=== PATIENT | female | born 1950 | race Caucasian/White ===

== ENCOUNTER → 2016-09-18 | Outpatient (CLI) | payer MEDICARE, MEDICAID ==
[~2016-09-18] MED LIST: /DULO30CA; ASPI81TA3; CARV12.5; CYMBALTA; INSULIN NPH; KLON0.5T; LASI80TA; SIMV40TA2
--- NOTE | 2016-09-18 10:35 | REP ---
Clinical: Iron-deficiency anemia. Technique: PA and lateral. Comparison: None. Findings: Cardiomegaly with evidence for prior sternotomy, CABG, pacemaker, and valve replacement. Lung troy demonstrate mild chronic changes without acute consolidation, effusion, or pneumothorax. Skeletal structures demonstrate age-related degenerative changes. Impression: Cardiomegaly and chronic changes. No acute cardiopulmonary process. Signed by Wilfrido Bell MD 09/18/2016 10:26 A
== END ==
LOC: M RAD 09:53
PROVIDERS: ATTEND Internal Medicine Cardiovascular Disease
DX: T82.190A Other mechanical complication of cardiac electrode, initial encounter (principal); Z98.61 Coronary angioplasty status

== ENCOUNTER → 2016-10-02 | Outpatient (CLI) | payer MEDICAID, MEDICARE | LOC: M LAB 11:39 | PROVIDERS: ATTEND Internal Medicine Cardiovascular Disease | DX: Z01.818 Encounter for other preprocedural examination (principal); T82.11 Breakdown (mechanical) of cardiac electronic device ==

== ENCOUNTER → 2016-10-04 | Outpatient (CLI) | payer MEDICARE, MEDICAID | LOC: M LAB 17:29 | PROVIDERS: ATTEND Internal Medicine Infectious Disease | DX: T82.11 Breakdown (mechanical) of cardiac electronic device (principal); I33.0 Acute and subacute infective endocarditis ==

== ENCOUNTER → 2016-10-04 | Outpatient (CLI) | payer MEDICARE, MEDICAID | LOC: M LAB 17:33 | PROVIDERS: ATTEND Internal Medicine Cardiovascular Disease | DX: I33.0 Acute and subacute infective endocarditis (principal) ==

== ENCOUNTER → 2016-10-06 | Outpatient (CLI) | payer MEDICARE, MEDICAID ==
[2016-10-10 14:20] LABS: B. HENSELAE IgG (CAT SCRATCH) Negative titer (Neg:<1:320); B. HENSELAE IgM (CAT SCRATCH) Negative titer (Neg:<1:100); B. QUINTANA IgG (CAT SCRATCH) Negative titer (Neg:<1:320); B. QUINTANA IgM (CAT SCRATCH) Negative titer (Neg:<1:100)
== END ==
LOC: M LAB 15:09
PROVIDERS: ATTEND Internal Medicine Cardiovascular Disease
DX: I33.0 Acute and subacute infective endocarditis (principal)

== ENCOUNTER → 2016-10-12 | Outpatient (CLI) | payer MEDICARE, MEDICAID ==
[2016-10-12 17:53] LABS: CALCIUM LEVEL 8.8 MG/DL (8.8-10.2); CREATININE FOR GFR 1.6 MG/DL (0.55-1.02); GLOMERULAR FILTRATION RATE 34.4 (>45); POTASSIUM SERUM 4.5 MEQ/L (3.5-5.1)
== END ==
LOC: M LAB 15:43
PROVIDERS: ATTEND Internal Medicine Infectious Disease
DX: I38 Endocarditis, valve unspecified (principal)
CPT/HCPCS: 36415; 80048; 85652; 86140; 87040; G0463

== ENCOUNTER → 2016-10-24 | Outpatient (CLI) | payer MEDICARE, MEDICAID ==
[~2016-10-24] MED LIST changes: +GASTROGRAFIN SOLUTION 30ML (Q9963) As Ordered ONE
--- NOTE | 2016-10-24 17:11 | REP ---
CT HEAD WITHOUT CONTRAST: HISTORY: Endocarditis. COMPARISON: 08/13/2014. A small area of decreased attenuation is present in the posterior left temporal and parietal lobes. There is dilatation of the overlying cortical sulci. This represents an old infarction. Areas of decreased attentuation are present in the periventricular white matter. This represents small vessel ischemic disease. There is no intraparenchymal hemorrhage, mass or midline shift. The ventricular system and cortical sulci are dilated consistent with minimal volume loss. IMPRESSION: 1. 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 2. Small vessel ischemic disease. 3. Minimal volume loss. Signed by Joshua Mathias MD 10/24/2016 05:19 P
--- NOTE | 2016-10-24 18:17 | REP ---
Clinical: Chronic cough. Findings: The bilateral lung troy are well-aerated and clear. No acute consolidation, nodule or mass lesion. No significant chronic interstitial changes are appreciated. No pleural effusion/reaction. No pneumothorax. Tracheobronchial tree is patent. Mediastinum demonstrates cardiomegaly along with atherosclerotic changes to the thoracic aorta and coronary arteries. Evidence of prior sternotomy and pacemaker. Epicardial calcifications suggest prior cardiac infarction. No significant adenopathy. Surrounding musculoskeletal structures without focal osseous abnormality. Impression: Cardiomegaly. No acute mediastinal or pleuroparenchymal process. Signed by Wilfrido Bell MD 10/24/2016 06:09 P
--- NOTE | 2016-10-24 18:22 | REP ---
Clinical: Endocarditis. Chronic abdominal pain and cough. Findings: Lung bases are clear. Cardiomegaly is appreciated with evidence for prior cardiac infarction. Liver, spleen, pancreas, gallbladder, bilateral adrenal glands and kidneys are normal for noncontrast evaluation. The enteric system is without obstruction or acute inflammatory process. Sigmoid diverticula noted without acute diverticulitis. Pelvis demonstrates normal bladder and the age-appropriate uterus/adnexa. Small fat containing inguinal hernias. No pelvic fluid or ascites. No adenopathy. No free air. Moderate atherosclerotic changes to the aorta and branch vessels without aneurysm. Musculoskeletal structures demonstrate degenerative changes without focal osseous abnormality. Impression: Scattered sigmoid diverticula without acute diverticulitis. Degenerative changes to the visualized thoracolumbar spine. Atherosclerotic changes to the vasculature. No ascites. No acute intra-abdominal or pelvic pathology appreciated. Signed by Wilfrido Bell MD 10/24/2016 06:13 P
[2016-10-27 15:40] LABS: Q FEVER PCR NEGATIVE
== END ==
LOC: M RAD 14:19
PROVIDERS: ATTEND Internal Medicine Infectious Disease
DX: R05 Cough (principal); I38 Endocarditis, valve unspecified; K57.30 Diverticulosis of large intestine without perforation or abscess without bleeding; M51.35 Other intervertebral disc degeneration, thoracolumbar region; I51.7 Cardiomegaly; I73.9 Peripheral vascular disease, unspecified; G31.9 Degenerative disease of nervous system, unspecified
CPT/HCPCS: 36415; 70450; 71250; 74176; 86638; Q9963

== ENCOUNTER 2017-04-03 10:49 | Inpatient (IN) | payer MEDICARE, MEDICAID ==
[~2017-04-03] VITALS: Ht 147.3 cm; Wt 54.8 kg
[~2017-04-03 10:49] MED LIST changes: -GASTROGRAFIN SOLUTION 30ML (Q9963) As Ordered ONE
[2017-04-03] MEDS ORDERED: PANTOPRAZOLE 40MG INJ (PROTONIX) (C9113) IV ONE (11:00)
[2017-04-03] MEDS ORDERED: TOPR25TA PO (11:13)
[2017-04-03] MEDS ORDERED: BUME2TAB PO (11:13)
[2017-04-03] MEDS ORDERED: POTA10CA PO (11:13)
[2017-04-03] MEDS ORDERED: PRAD150C PO (11:13)
[2017-04-03] MEDS ORDERED: SPIR50TA2 PO (11:13)
[2017-04-03] MEDS ORDERED: INSUH10VL SC (11:13)
[2017-04-03] MEDS ORDERED: INSULADS SC (11:13)
[2017-04-03] MEDS ORDERED: OMEP20CA3 PO (11:13)
[2017-04-03] MEDS ORDERED: FERR325T3 PO (11:13)
[2017-04-03] MEDS ORDERED: OMEP40CA2 PO (11:13)
[2017-04-03] MEDS ORDERED: JANU100T PO (11:13)
[2017-04-03] MEDS ORDERED: DULO30CA PO (11:13)
[2017-04-03] MEDS ORDERED: LISI2.5T3 PO (11:13)
[2017-04-03] MEDS: PANTOPRAZOLE SODIUM 40 MG in D5W MINI-BAG PLUS 50 ML IV SCH ×3 (11:35→20:36)
[2017-04-03 12:04] LABS: INR 1.44
[2017-04-03 12:10] LABS: MEAN CORPUSCULAR HEMOGLOBIN 30.4 pg (27.0-33.0); MEAN CORPUSCULAR HGB CONC 32.6 g/dl (32.0-36.5); MEAN CORPUSCULAR VOLUME 93.4 fl (80.0-96.0); PLATELET COUNT, AUTOMATED 239 k/mm3 (150-450); RED CELL DISTRIBUTION WIDTH 14.1 % (11.5-14.5); WHITE BLOOD COUNT 15.1 K/mm3 (4.0-10.0)
[2017-04-03 12:11] LABS: ADD MANUAL DIFFER YES; DIFF SLIDE NUMBER 254
[2017-04-03 12:37] LABS: BASOPHILS 1 % (0-4)
[2017-04-03 12:38] LABS: ANISOCYTOSIS 2+; HYPOCHROMASIA 1+; MICROCYTOSIS 1+
[2017-04-03 12:41] LABS: ALBUMIN 3.2 GM/DL (3.2-5.2); ALBUMIN/GLOBULIN RATIO 1.28 (1.00-1.93); BILIRUBIN,DIRECT 0.1 MG/DL (0.0-0.2); BILIRUBIN,TOTAL 0.4 MG/DL (0.2-1.0); CALCIUM LEVEL 8.3 MG/DL (8.8-10.2); CREATININE FOR GFR 1.17 MG/DL (0.55-1.02); GLOMERULAR FILTRATION RATE 49.3 (>45); TOTAL PROTEIN 5.7 GM/DL (6.4-8.2)
[2017-04-03] MEDS ORDERED: GLUC1KIT INJ (12:42)
[2017-04-03] MEDS ORDERED: CALC600T3 PO (12:42)
[2017-04-03] MEDS ORDERED: ATOR40TA75 PO (12:42)
[2017-04-03] MEDS ORDERED: SENN1TAB10 PO (12:42)
[2017-04-03 12:46] LABS: POTASSIUM SERUM 5.6 MEQ/L (3.5-5.1)
[2017-04-03] MEDS ORDERED: NS 500 ML IV SCH (15:00)
[2017-04-03] MEDS ORDERED: ONDANSETRON 4MG/2ML VIAL (J2405) IV PRN (15:00)
[2017-04-03] MEDS ORDERED: GLUCOSE 4 GM CHEW TABLET PO PRN (15:15)
[2017-04-03] MEDS ORDERED: DEXTROSE 50% 50 ML SYRINGE IV PRN (15:15)
[2017-04-03] MEDS ORDERED: GLUCAGON FOR INJ 1 MG VIAL (J1610) SC PRN (15:15)
--- NOTE | 2017-04-03 15:32 | HPEPDOC ---
General Date of Admission 04/03/17 Chief Complaint The patient is a 66-year-old female admitted with a reason for visit of Rectal Bleeding. History of Present Illness 66-year-old female with past medical history of dyslipidemia, congestive heart failure with EF of 35-40% s/p PPM, insulin dependent diabetes mellitus, iron deficiency anemia, atrial fibrillation on Pradaxa, GI bleeding, CKD, and ? Endocarditis presents to the ER with a chief complaint of 2 episodes of maroon color stools over the last 24 hours. The patient states that her first episode was last night, at which time, the patient states that she had a profuse amount of maroon-colored stool. In addition, the patient states she had additional episode this morning in the ER. She does note that she has had a similar occurrence in the past, most notably in January 2016 at which time she required an EGD and colonoscopy which revealed duodenal ulcers at [facility]. She reports that her anticoagulation was temporarily discontinued and then restarted about 2 weeks later. Since then, the patient states that she has had intermittent spotting of blood in her bowel movements but not anything significant like she had yesterday evening and this morning. She denies any fevers, chills, chest pain, shortness of breath, palpitations, significant abdominal pain, or any nausea/vomiting/diarrhea. In the ER, the patient was noted to have a hemoglobin of 6.8 and she was also notably orthostatic. Her blood pressure in the supine position is stable. The patient will be transfused 2 units of packed red blood cells. In addition, a GI consult has been obtained for possible EGD/colonoscopy. Home Medications Scheduled Atorvastatin Calcium (Atorvastatin Calcium) 40 Mg Tab, 40 MG PO QPM, (Reported) Bumetanide (Bumetanide) 2 Mg Tab, 1 MG PO DAILY, (Reported) Calcium Carbonate (Calcium Carbonate) 600 Mg Tab, 600 MG PO BIDWM, (Reported) Dabigatran Etexilate (Pradaxa) 150 Mg Cap, 150 MG PO BID, (Reported) Duloxetine Hcl (Cymbalta) 30 Mg Cap, 60 MG PO DAILY, (Reported) Ferrous Sulfate (Ferrous Sulfate) 325 Mg Tab, 325 MG PO DAILY, (Reported) Insulin Aspart (Novolog) 100 U/Ml Inj, 1 DOSE SC AC, (Reported) PER SLIDING SCALE Insulin Glargine (Lantus) 100 Unit/Ml Inj, 30 UNIT SC QHS, (Reported) Lisinopril (Lisinopril) 2.5 Mg Tab, 2.5 MG PO DAILY, (Reported) Metoprolol Succinate (Toprol Xl) 25 Mg Tab, 25 MG PO DAILY, (Reported) Omeprazole (Omeprazole) 20 Mg Cap, 20 MG PO BID, (Reported) Potassium Chloride (Klor-Con M10) 10 Meq Tabcr, 10 MEQ PO DAILY, (Reported) Senna (Senna Lax) 8.6 Mg Tab, 2 TAB PO QHS, (Reported) Sitagliptin Phosphate (Januvia) 100 Mg Tab, 100 MG PO DAILY, (Reported) Spironolactone (Spironolactone) 50 Mg Tab, 50 MG PO DAILY, (Reported) Scheduled PRN Glucagon Rdna (Glucagon Emergency Kit) 1 Mg Kit, 1 MG INJ for LOW BLOOD SUGAR, ( Reported) Allergies Coded Allergies: Prochlorperazine (Verified Allergy, Unknown, 04/03/17) Warfarin (Verified Allergy, Unknown, 04/03/17) Past Medical History Medical History as noted above Surgical History TUBAL LIGATION OOPHERECTOMY CARDIAC SURGERY/BYPASS/ HEART ABLATION 1996 CAROTID ENDARTERECTOMY BILATERAL DEFIBRILLATOR Family History Significant Family History: No pertinent family hx Social History * Smoker: Denies Alcohol: Denies Drugs: denies Lives with her daughter, is functionally independent, and does not use any assistance devices for ambulation. Review of Symptoms Other systems 10 point review of systems negative unless otherwise specified in HPI. Physical Examination General Exam: Positive: Alert, Cooperative, No Acute Distress, Other (does appear pale from anemia) ENT Exam: Positive: Atraumatic, Mucous membr. moist/pink Neck Exam: Negative: JVD Chest Exam: Positive: Clear to auscultation, Normal air movement Heart Exam: Positive: Rate Normal, Normal S1, Normal S2 Abdomen Exam: Positive: Soft, Negative: Tenderness Extremity Exam: Negative: Tenderness, Swelling Psych Exam: Positive: Oriented x 3 Vital Signs Vital Signs Date Time Temp Pulse Resp B/P (MAP) Pulse Ox O2 Delivery O2 Flow Rate FiO2 04/03/17 13:34 69 100 04/03/17 13:31 117/51 (73) 04/03/17 11:17 97.4 16 Nasal Cannula 2.0 Laboratory Data Labs 24H Laboratory Tests 2 04/03/17 11:43: Neutrophils 92H, Lymphocytes (Manual) 5L, Monocytes (Manual) 1, Basophils ( Manual) 1, Atypical Lymphocytes 1, Platelet Estimate NORMAL, Hypochromasia 1+, Anisocytosis 2+, Microcytosis 1+, Prothrombin Time 17.9H, Prothromb Time International Ratio 1.44, Anion Gap 9, Glomerular Filtration Rate 49.3, Lactic Acid Level 1.4, Calcium Level 8.3L, Aspartate Amino Transf (AST/SGOT) 16, Alanine Aminotransferase (ALT/SGPT) 20, Alkaline Phosphatase 102, Total Bilirubin 0.4, Direct Bilirubin 0.1, Total Creatine Kinase 49, Creatine Kinase MB 1.8, Creatine Kinase MB Relative Index 3.67, Troponin I 0.02, Total Protein 5.7L, Albumin 3.2, Albumin/Globulin Ratio 1.28, Lipase 85 CBC/BMP Laboratory Tests 04/03/17 11:43 Red Blood Count 2.24 L, Mean Corpuscular Volume 93.4, Mean Corpuscular Hemoglobin 30.4, Mean Corpuscular Hemoglobin Concent 32.6, Red Cell Distribution Width 14.1 Plan / VTE VTE Prophylaxis Ordered?: Yes Plan Plan Acute GI Bleed Hgb noted to be 6.8 in the ER-->We will transfuse 2 Units of PRBC's Protonix gtt and Carafate ordered Will hold Pradaxa for now Patient with most recent EGD and Colonoscopy @ [facility] in January 2016, at which time the patient was found to have duodenal ulcers according to the patient-- we will place an order to obtain records We will serially monitor H&H's q6h Discussed the case with GI--we will keep the patient on a clear liquid diet for now, nothing by mouth after midnight, and anticipate possible EGD/Colonoscopy in the AM Leukocytosis Likely 2/2 Above No overt signs of infection noted We will cont to monitor CBC Hx of CAD s/p CABG, Ablation, Carotid Endartectomy, CHF with an EF of 35-40% s/ p AICD Initial troponin negative EKG noted Patient with no acute c/o chest pain, palpitations, shortness of breath AC on hold 2/2 Above Cont Statin Patient does not appear to be fluid overloaded, we will hold diuretics and anti- hypertensives for now in view of the patient's GI bleed, and soft blood pressure Atrial fibrillation on Pradaxa, rate controlled We will hold the patient's anticoagulation given GI bleed I have extensively discussed the increased risk of stroke, PE/DVT with the patient and her daughter at the bedside. They have verbalized understanding of this. Insulin-dependent diabetes mellitus We will have the patient on a insulin sliding scale every 6 hours for now Dyslipidemia Continue statin Chronic kidney disease Serum creatinine appears to be at baseline Hx of ?Endocarditis The patient has been seen by Dr. Adrian of infectious diseases as an outpatient, and states that she has completed antibiotics, and that there is no longer any evidence of active infection DVT Prophylaxis SCDs/TEDs The patient will be admitted under the service of Dr. Mcadams, who will begin to follow the patient on 04/04/17 at 7 AM. JEAN PIERRE SERRANO MD Apr 03, 2017 15:32
[2017-04-03] MEDS ORDERED: SOD POLYSTYRENE SULFONATE SUSP 15 GM/60 ML UD PO ONE (15:45)
[2017-04-03 16:30] VITALS: BP 159/70
[2017-04-03] MEDS: SUCRALFATE 1 GM TAB PO SCH ×2 (17:04→20:36)
[2017-04-03] MEDS: DULoxetine 30 MG CAP (CYMBALTA) PO SCH (17:06)
[2017-04-03] MEDS: HumaLOG INSULIN (NovoLOG) PER UNIT SC SCH (17:06)
[2017-04-03 17:28] VITALS: BP 148/62
[2017-04-03 18:00] VITALS: BP 155/61
[2017-04-03 19:00] VITALS: BP 176/69
[2017-04-03] MEDS ORDERED: INFLUENZA VIRUS VACCINE HIGH DOSE 0.5 ML SYRINGE (90662) IM SCH (19:15)
[2017-04-03 20:00] VITALS: BP 167/71
[2017-04-03] MEDS: ATORVASTATIN 20 MG TAB PO SCH (20:36)
--- NOTE | 2017-04-03 21:20 | ECGEPIP ---
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
[2017-04-03 23:01] VITALS: BP 149/67
--- NOTE | 2017-04-03 23:35 | CR.PDOC ---
[facility] Consultation Consultation DATE OF CONSULTATION: Apr 03, 2017 at 17:49 REFERRING PROVIDER: Dr. Collins ATTENDING PHYSICIAN: Dr. Mcadams REASON FOR CONSULTATION/CHIEF COMPLAINT: rectal bleeding. HISTORY OF PRESENT ILLNESS: 66-year-old female patient with DLD, CHF 9 EF 40%, On PPM), DM type 2, Atrial fibrillation on pradaxa, CKD presented to ER for complaints of rectal bleeding and noted drop in Hb.HCT -- and GI consulted for the same. Patient reports having atleast 5- 6 episodes of bloody bowel movements , without any associated abdominal pain, nausea or vomiting. Patient also denies having any recent weight loss, loss of appetite, hematemesis. OFF note: patient had h/o similar rectal bleeding in January 2016 at which time she required an EGD and colonoscopy which revealed duodenal ulcers at [facility]. She reports that her anticoagulation was temporarily discontinued and then restarted about 2 weeks later Review of Systems: GI: as stated above CVS: No chest pain, No palpitations, No leg swelling RS: No Shortness of breath, No Wheezing HEART SPECIALIST: No dizziness, No motor weakness, No sensory problem Psych: No sleep alteration, No depression, Hematology: No bruising, No gum bleeding, Musculoskeletal: No joint pain, ambulating well. Skin: No rash ENT: No ear discharge/ pain, No dysphagia. Eyes: No photophobia. Home medications: reviewed. On anticoagulants -- pradaxa. Medical h/o: As above. Surgical h/o: Tubal ligation. and PPM placement. Carotid endarterrectomy. Social H/o: Denies smoking, alcohol or drugs use. Family h/o of GI cancers - None Prior Endoscopies: --- EGD and Colonoscopy -- in 2016 -- noted duodenal ulcers as per patient. Exam: Vitals: reviewed General: Alert and oriented x 3, not in distress HEENT: NO pallor, no icterus. Normal oropharynx, NO cervical lymph nodes. Chest: symmetric with bilateral clear air entry, CVS: S1, S2 heard, normal, no murmurs . Abdomen: non-distended, no surgical scars, soft, tenderness in epigastric area with no palpable masses, normal bowel sounds heard. negative tucker sign. gravid uterus palpable. Rectal exam: Deferred at this time Extremities: no pedal edema, pulses palpable. HEART SPECIALIST: no focal motor or sensory deficits. Moves all extremities Skin: no rash. Labs: reviewed. Imaging of abdomen: none. IMPRESSION: -- Rectal bleeding with drop in HCT and h/o duodenal ulcer in past. DDx - likely diverticular bleeding vs GI malignancy vs r/o PUD -- CKD with Cr- 1.2. Recommendations: -- Patient is educated about the test results and need for further work up including EGD and colonoscopy for further Evaluation. The procedures, risks, benefits and all alternatives were explained to patient and she verbalized undertstanding and agreed for the procedures. -- Clear liquid diet. -- monitor Hb.HCT every 6 hours and transfuse if needed to keep hb around 9 -- Cardiology evaluation of the Pacemaker/ AICD. -- Hold anticoagulation for now and risks and benefits discussed with patient. -- Patient will be scheduled for EGD and colonsocopy tomorrow depending on the cardiology evaluation. -- Golytely 4 litres to be completed by 12 noon tomorrow. -- Dulcolax 20 mg at 6 AM. -- NPO except medications after 12 noon. plan of care discussed with patient and the primary team. Please call for any question. Laboratory Data CBC/BMP Laboratory Tests 04/03/17 11:43 Red Blood Count 2.24 L, Mean Corpuscular Volume 93.4, Mean Corpuscular Hemoglobin 30.4, Mean Corpuscular Hemoglobin Concent 32.6, Red Cell Distribution Width 14.1 04/03/17 18:00 Allergies Coded Allergies: Prochlorperazine (Verified Allergy, Unknown, 04/03/17) Warfarin (Verified Allergy, Unknown, 04/03/17) Home Medications Scheduled Atorvastatin Calcium (Atorvastatin Calcium) 40 Mg Tab, 40 MG PO QPM, (Reported) Bumetanide (Bumetanide) 2 Mg Tab, 1 MG PO DAILY, (Reported) Calcium Carbonate (Calcium Carbonate) 600 Mg Tab, 600 MG PO BIDWM, (Reported) Dabigatran Etexilate (Pradaxa) 150 Mg Cap, 150 MG PO BID, (Reported) Duloxetine Hcl (Cymbalta) 30 Mg Cap, 60 MG PO DAILY, (Reported) Ferrous Sulfate (Ferrous Sulfate) 325 Mg Tab, 325 MG PO DAILY, (Reported) Insulin Aspart (Novolog) 100 U/Ml Inj, 1 DOSE SC AC, (Reported) PER SLIDING SCALE Insulin Glargine (Lantus) 100 Unit/Ml Inj, 30 UNIT SC QHS, (Reported) Lisinopril (Lisinopril) 2.5 Mg Tab, 2.5 MG PO DAILY, (Reported) Metoprolol Succinate (Toprol Xl) 25 Mg Tab, 25 MG PO DAILY, (Reported) Omeprazole (Omeprazole) 20 Mg Cap, 20 MG PO BID, (Reported) Potassium Chloride (Klor-Con M10) 10 Meq Tabcr, 10 MEQ PO DAILY, (Reported) Senna (Senna Lax) 8.6 Mg Tab, 2 TAB PO QHS, (Reported) Sitagliptin Phosphate (Januvia) 100 Mg Tab, 100 MG PO DAILY, (Reported) Spironolactone (Spironolactone) 50 Mg Tab, 50 MG PO DAILY, (Reported) Scheduled PRN Glucagon Rdna (Glucagon Emergency Kit) 1 Mg Kit, 1 MG INJ for LOW BLOOD SUGAR, ( Reported) LARA LYNN MD Apr 03, 2017 19:14
[2017-04-04] VITALS (8 sets, daily range): BP systolic 123–198; BP diastolic 63–78
[2017-04-04] MEDS: PANTOPRAZOLE SODIUM 40 MG in D5W MINI-BAG PLUS 50 ML IV SCH ×5 (02:00→22:00)
[2017-04-04] MEDS: ACETAMINOPHEN TAB 650MG DOSE (2X325MG) PO PRN (02:13)
[2017-04-04] MEDS ORDERED: GOLYTELY SOLN 4000 ML BTL PO ONE ×2 (05:00→18:30)
[2017-04-04 05:24] LABS: MEAN CORPUSCULAR HEMOGLOBIN 29.3 pg (27.0-33.0); MEAN CORPUSCULAR HGB CONC 34.2 g/dl (32.0-36.5); RED CELL DISTRIBUTION WIDTH 15.6 % (11.5-14.5); WHITE BLOOD COUNT 8.2 K/mm3 (4.0-10.0)
[2017-04-04 05:27] LABS: MEAN CORPUSCULAR VOLUME 85.6 fl (80.0-96.0)
[2017-04-04 05:50] LABS: BLOOD UREA NITROGEN 24 MG/DL (7-18); CALCIUM LEVEL 8.3 MG/DL (8.8-10.2); CARBON DIOXIDE LEVEL 29 MEQ/L (21-32); CHLORIDE LEVEL 102 MEQ/L (98-107); CREATININE FOR GFR 0.96 MG/DL (0.55-1.02); GLOMERULAR FILTRATION RATE > 60.0 (>45); GLUCOSE, FASTING 116 MG/DL (80-110)
[2017-04-04] MEDS ORDERED: BISACODYL 5 MG TAB PO ONE (06:00)
[2017-04-04] MEDS: HumaLOG INSULIN (NovoLOG) PER UNIT SC SCH ×4 (06:00→17:14)
[2017-04-04 06:12] LABS: ANION GAP 7 MEQ/L (8-16); SODIUM LEVEL 138 MEQ/L (136-145)
[2017-04-04 06:15] LABS: POTASSIUM SERUM 3.7 MEQ/L (3.5-5.1)
[2017-04-04] MEDS: SUCRALFATE 1 GM TAB PO SCH ×4 (06:27→20:28)
--- NOTE | 2017-04-04 10:27 | IPNPDOC ---
Text Note Date of Service The patient was seen on 04/04/17. NOTE Subjective: Patient seen and examined at bedside. Still having BRBPR. No other medical complaints. Objective: General: NAD, lying comfortably in bed HEENT: NC/AT, EOMI Lungs: CTA B/L, PPM right upper chest, scars from previous PPM left upper chest Heart: +S1S2, RRR Abd: soft, NT, hyperactive BS Ext: no edema Neuro: AAOx3 Assessment/Plan: 1. Acute GI Bleed Hgb noted to be 6.8 in the ER-->s/p 2 units PRBC Protonix gtt and Carafate ordered Will hold Pradaxa for now Patient with most recent EGD and Colonoscopy @ [facility] in January 2016, at which time the patient was found to have duodenal ulcers according to the patient-- obtain old records Serial H&H's q6h NPO - EGD/colonoscopy planned for today 2. Leukocytosis - No overt signs/symptoms of infection We will cont to monitor CBC 3. CAD - Hx of CAD s/p CABG, Ablation - ischemic cardiomyopathy - CHF with an EF of 35-40% s/p AICD - Initial troponin negative - very minimal elevation - continue to lexus - AC on hold / Above - Cont Statin - Patient does not appear to be fluid overloaded, diuretics and anti- hypertensives held for soft blood pressure - this morning blood pressures slightly elevated - will continue to follow clinically 4. Carotid disease - s/p CEA 5. Atrial fibrillation - originally on Pradaxa -held - rate controlled - risk of stroke, PE/DVT has been discussed with the patient and her daughter at the bedside. They have verbalized understanding of this. 6. Insulin-dependent diabetes mellitus - ISS 7. Dyslipidemia Continue statin 8. Chronic kidney disease Serum creatinine appears to be at baseline 9. Hx of ?Endocarditis The patient has been seen by Dr. Adrian of infectious diseases as an outpatient, and states that she has completed antibiotics, and that there is no longer any evidence of active infection 10. DVT Prophylaxis SCDs/TEDs Dispo: Discussed AICD with Dr. Dowell, with recommendations for magnetic deactivation in OR prior to procedure. Plan for EGD/colonoscopy tomorrow. Continue with serial H/H. VS,Fishbone, I+O VS, Fishbone, I+O Laboratory Tests 04/03/17 11:43 Red Blood Count 2.24 L, Mean Corpuscular Volume 93.4, Mean Corpuscular Hemoglobin 30.4, Mean Corpuscular Hemoglobin Concent 32.6, Red Cell Distribution Width 14.1 04/03/17 18:00 04/04/17 00:08 04/04/17 05:04 Red Blood Count 3.25 L, Mean Corpuscular Volume 85.6 #, Mean Corpuscular Hemoglobin 29.3, Mean Corpuscular Hemoglobin Concent 34.2, Red Cell Distribution Width 15.6 H, Calcium Level 8.3 L, Total Creatine Kinase 59 Vital Signs Date Time Temp Pulse Resp B/P (MAP) Pulse Ox O2 Delivery O2 Flow Rate FiO2 04/04/17 08:01 74 154/67 (96) 99 04/04/17 08:00 97.9 18 Room Air 04/04/17 05:14 2.0 I&O- Last 24 Hours up to 6 AM 04/04/17 06:00 Intake Total 1565 ml Output Total 1275 ml Balance 290 ml JAMES ZUNIGA MD Apr 04, 2017 10:27
[2017-04-04] MEDS: DULoxetine 30 MG CAP (CYMBALTA) PO SCH (12:19)
--- NOTE | 2017-04-04 18:29 | ECGEPIP ---
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
[2017-04-04] MEDS: ATORVASTATIN 20 MG TAB PO SCH (20:28)
[2017-04-05] VITALS (10 sets, daily range): BP systolic 135–160; BP diastolic 57–78
[2017-04-05] MEDS: HumaLOG INSULIN (NovoLOG) PER UNIT SC SCH ×4 (06:05→18:17)
[2017-04-05 06:14] LABS: MEAN CORPUSCULAR HGB CONC 33.3 g/dl (32.0-36.5); RED CELL DISTRIBUTION WIDTH 16.1 % (11.5-14.5); WHITE BLOOD COUNT 10.5 K/mm3 (4.0-10.0)
[2017-04-05 06:32] LABS: ANION GAP 9 MEQ/L (8-16); CALCIUM LEVEL 8.3 MG/DL (8.8-10.2); CARBON DIOXIDE LEVEL 27 MEQ/L (21-32); CHLORIDE LEVEL 99 MEQ/L (98-107); CREATININE FOR GFR 0.92 MG/DL (0.55-1.02); GLOMERULAR FILTRATION RATE > 60.0 (>45); GLUCOSE, FASTING 268 MG/DL (80-110); MAGNESIUM LEVEL 1.6 MG/DL (1.8-2.4); POTASSIUM SERUM 3.7 MEQ/L (3.5-5.1); SODIUM LEVEL 135 MEQ/L (136-145)
[2017-04-05 07:05] LABS: BLOOD UREA NITROGEN 9 MG/DL (7-18)
[2017-04-05] MEDS ORDERED: MAG SULF 1GM/100ML (MAG RUN) 1 GM in APPROPRIATE DILUENT 1 EA IV ONE (08:00)
--- NOTE | 2017-04-05 08:02 | IPNPDOC ---
Text Note Date of Service The patient was seen on 04/05/17. NOTE Subjective: Patient seen and examined at bedside. No further episodes of rectal bleeding. No other medical complaints. Denies chest pain, shortness of breath, headaches, dizziness. Objective: General: NAD, sitting comfortably in chair HEENT: NC/AT, EOMI Lungs: CTA B/L, PPM right upper chest, scars from previous PPM left upper chest Heart: +S1S2, RRR Abd: soft, NT, hyperactive BS Ext: no edema Neuro: AAOx3 Assessment/Plan: 1. Acute GI Bleed - acute blood loss anemia - GI bleed possible due to Pradaxa - Hgb 6.8 on admission in the ER-->s/p 2 units PRBC - Protonix gtt and Carafate ordered - Will hold Pradaxa for now - Recent EGD and Colonoscopy @ [facility] in January 2016 = duodenal ulcers according to the patient-- obtain old records - Serial H&H's q6h - NPO - EGD/colonoscopy planned for today - d/w GI assistance appreciated - will follow up repeat troponin prior to procedure 2. Leukocytosis - No overt signs/symptoms of infection - We will cont to monitor CBC 3. CAD - Hx of CAD s/p CABG, Ablation - ischemic cardiomyopathy - CHF with an EF of 35-40% s/p AICD - chronic systolic CHF - Initial troponin negative - minimal elevation - continue to trend; no ECG changes - AC on hold 2/2 Above - Cont Statin - Patient does not appear to be fluid overloaded, diuretics and anti- hypertensives held for soft blood pressure - this morning blood pressures slightly elevated - will continue to follow clinically 4. Carotid disease - s/p CEA 5. Atrial fibrillation - Pradaxa on hold as per GI bleed - rate controlled - risk of stroke, PE/DVT has been discussed with the patient and her daughter at the bedside. They have verbalized understanding of this. 6. Insulin-dependent diabetes mellitus - ISS 7. Dyslipidemia - statin therapy 8. Chronic kidney disease - Serum creatinine appears to be at baseline 9. Hx of ?Endocarditis - pt has been seen by ID as an outpatient - states she has completed abx, and that there is no longer any evidence of active infection 10. DVT Prophylaxis - SCDs/TEDs Dispo: Discussed AICD with Dr. Dowell, with recommendations for magnetic de- activation in OR prior to procedure. Plan for EGD/colonoscopy today pending results of serial Troponin. Continue with serial H/H. VS,Fishbone, I+O VS, Fishbone, I+O Laboratory Tests 04/04/17 12:04 04/04/17 17:57 04/05/17 00:16 04/05/17 05:56 Red Blood Count 3.22 L, Mean Corpuscular Volume 90.0, Mean Corpuscular Hemoglobin 30.0, Mean Corpuscular Hemoglobin Concent 33.3, Red Cell Distribution Width 16.1 H, Calcium Level 8.3 L, Total Creatine Kinase 154 Vital Signs Date Time Temp Pulse Resp B/P (MAP) Pulse Ox O2 Delivery O2 Flow Rate FiO2 04/05/17 04:00 97.4 72 19 135/65 (88) 97 Room Air 04/04/17 05:14 2.0 I&O- Last 24 Hours up to 6 AM 04/05/17 05:59 Intake Total 2000 ml Output Total 3700 ml Balance -1700 ml JAMES ZUNIGA MD Apr 05, 2017 08:02
[2017-04-05] MEDS: SUCRALFATE 1 GM TAB PO SCH ×4 (10:15→22:20)
[2017-04-05] MEDS: PANTOPRAZOLE 40MG TAB (PROTONIX) PO SCH (10:15)
[2017-04-05] MEDS: DULoxetine 30 MG CAP (CYMBALTA) PO SCH (10:15)
[2017-04-05] MEDS ORDERED: MAGNESIUM OXIDE 400 MG TAB (MAG-OX) PO ONE (11:30)
--- NOTE | 2017-04-05 13:45 | IPNPDOC ---
Date Seen The patient was seen on 04/05/17. at 09:30 AM and Again at 1:00 PM Progress Note Interval history: Patient completed golytely and had multiple bowel movements. Patient denies any more blood in stools. Also patient was seen by cardiology Dr. Dowell - who reviewed and suggested to primary team that magnet can be placed on the AICD for the procedure. Patient denying any Shortness of breath and no new symptoms. Exam: Vitals noted. Abdomen; soft, normal bowel sounds, non tender. Labs: reviewed. No further drop in Hb/HCT. Recommendations: -- Continue PPI -- Patient is scheduled for EGD and colonoscopy today. Informed consent already obtained and placed in chart. -- follow up the procedure reports plan of care discussed with patient and she verbalized understanding and agreed with the plan. VS, I&O, 24H, Fishbone Laboratory Data CBC/BMP Laboratory Tests 04/04/17 17:57 04/05/17 00:16 04/05/17 05:56 Red Blood Count 3.22 L, Mean Corpuscular Volume 90.0, Mean Corpuscular Hemoglobin 30.0, Mean Corpuscular Hemoglobin Concent 33.3, Red Cell Distribution Width 16.1 H, Calcium Level 8.3 L, Total Creatine Kinase 154 LARA LYNN MD Apr 05, 2017 13:45
[2017-04-05] MEDS ORDERED: EPINEPHrine 1MG/10ML SYRINGE 1.5IN As Ordered ONE (14:28)
--- NOTE | 2017-04-05 15:08 | ROOR ---
Patient Name: Flavia Pulliam Procedure Date: 04/05/2017 1:45 PM Date of : 1950 Age: 66 Room: [facility] Gender: Female Note Status: Finalized Procedure: Upper GI endoscopy Indications: Active gastrointestinal bleeding, Gastrointestinal bleeding of unknown origin Providers: Federico Alvares MD Referring MD: RACHEL HERNANDEZ MD Requesting Provider: Medicines: Monitored Anesthesia Care Complications: No immediate complications. Procedure: Pre-Anesthesia Assessment: - Prior to the procedure, a History and Physical was performed, and patient medications and allergies were reviewed. The patient is competent. The risks and benefits of the procedure and the sedation options and risks were discussed with the patient. All questions were answered and informed consent was obtained. Patient identification and proposed procedure were verified by the physician, the nurse and the rack maker in the procedure room. Airway Examination: normal oropharyngeal airway and neck mobility. Respiratory Examination: clear to auscultation. CV Examination: normal. Prophylactic Antibiotics: The patient does not require prophylactic antibiotics. Prior Anticoagulants: The patient has taken no previous anticoagulant or antiplatelet agents. ASA Grade Assessment: III - A patient with severe systemic disease. After reviewing the risks and benefits, the patient was deemed in satisfactory condition to undergo the procedure. The anesthesia plan was to use monitored anesthesia care (MAC). Immediately prior to administration of medications, the patient was re-assessed for adequacy to receive sedatives. The heart rate, respiratory rate, oxygen saturations, blood pressure, adequacy of pulmonary ventilation, and response to care were monitored throughout the procedure. The physical status of the patient was re-assessed after the procedure. The Endoscope was introduced through the mouth, and advanced to the third part of duodenum. The upper GI endoscopy was accomplished without difficulty. The patient tolerated the procedure well. Findings: The examined esophagus was normal. No gross lesions were noted in the entire examined stomach. The duodenal bulb and second portion of the duodenum were normal. Impression: - Normal esophagus. - No gross lesions in the stomach. - Normal duodenal bulb and second portion of the duodenum. No ulcers noted. - No specimens collected. Recommendation: - Patient has a contact number available for emergencies. The signs and symptoms of potential delayed complications were discussed with the patient. Return to normal activities tomorrow. Written discharge instructions were provided to the patient. - Return patient to hospital [facility] for ongoing care. - Continue present medications. - Resume regular diet today. - Patient to follow up with her own linotype mechanic upon discharge. - Return to primary care physician. Federico Alvares MD Federico Alvares MD 04/05/2017 3:07:41 PM This report has been signed electronically. Number of Addenda: 0 Note Initiated On: 04/05/2017 1:45 PM Estimated Blood Loss: Estimated blood loss: none.
--- NOTE | 2017-04-05 15:15 | ROOR ---
Patient Name: Flavia Pulliam Procedure Date: 04/05/2017 1:44 PM Date of : 1950 Age: 66 Room: [facility] Gender: Female Note Status: Finalized Procedure: Colonoscopy Indications: Rectal bleeding, Acute post hemorrhagic anemia Providers: Federico Alvares MD Referring MD: RACHEL HERNANDEZ MD Requesting Provider: Medicines: Monitored Anesthesia Care Complications: No immediate complications. Procedure: Pre-Anesthesia Assessment: - Prior to the procedure, a History and Physical was performed, and patient medications and allergies were reviewed. The patient is competent. The risks and benefits of the procedure and the sedation options and risks were discussed with the patient. All questions were answered and informed consent was obtained. Patient identification and proposed procedure were verified by the physician, the nurse and the card boxer in the procedure room. Mental Status Examination: alert and oriented. Airway Examination: normal oropharyngeal airway and neck mobility. Respiratory Examination: clear to auscultation. CV Examination: normal. Prophylactic Antibiotics: The patient does not require prophylactic antibiotics. Prior Anticoagulants: The patient has taken no previous anticoagulant or antiplatelet agents. ASA Grade Assessment: III - A patient with severe systemic disease. After reviewing the risks and benefits, the patient was deemed in satisfactory condition to undergo the procedure. The anesthesia plan was to use monitored anesthesia care (MAC). Immediately prior to administration of medications, the patient was re-assessed for adequacy to receive sedatives. The heart rate, respiratory rate, oxygen saturations, blood pressure, adequacy of pulmonary ventilation, and response to care were monitored throughout the procedure. The physical status of the patient was re-assessed after the procedure. The Colonoscope was introduced through the anus and advanced to the terminal ileum, with identification of the appendiceal orifice and IC valve. The colonoscopy was performed without difficulty. The patient tolerated the procedure well. The quality of the bowel preparation was good. The terminal ileum, ileocecal valve, appendiceal orifice, and rectum were photographed. Scope insertion time was 3 minutes. Scope withdrawal time was 20 minutes. The total duration of the procedure was 30 minutes. Findings: The perianal and digital rectal examinations were normal. The terminal ileum appeared normal. A 3 mm polyp was found in the ascending colon. The polyp was sessile. The polyp was removed with a cold biopsy forceps. Resection and retrieval were complete. Verification of patient identification for the specimen was done by the physician and nurse using the patient's name, date and medical record number. Estimated blood loss was minimal. One large angioectasia with stigmata of recent bleeding was found in the ascending colon. Area was successfully injected with 3 mL of a 1:10,000 solution of epinephrine for drug delivery. For hemostasis, four hemostatic clips were successfully placed. There was no bleeding at the end of the procedure. A few small-mouthed diverticula were found in the sigmoid colon. Non-bleeding external and internal hemorrhoids were found during retroflexion. The hemorrhoids were medium-sized. Impression: - The examined portion of the ileum was normal. - One 3 mm polyp in the ascending colon, removed with a cold biopsy forceps. Resected and retrieved. - One recently bleeding colonic angioectasia. Injected. Clips were placed. - Diverticulosis in the sigmoid colon. - Non-bleeding external and internal hemorrhoids. Recommendation: - Patient has a contact number available for emergencies. The signs and symptoms of potential delayed complications were discussed with the patient. Return to normal activities tomorrow. Written discharge instructions were provided to the patient. - Return patient to hospital [facility] for ongoing care. - High fiber diet. - Continue present medications. - Await pathology results. - Repeat colonoscopy in 5 years for surveillance based on pathology results. - Return to GI clinic at appointment to be scheduled. - Return to primary care physician. Federico Alvares MD Federico Alvares MD 04/05/2017 3:14:45 PM This report has been signed electronically. Number of Addenda: 0 Note Initiated On: 04/05/2017 1:44 PM Estimated Blood Loss: Estimated blood loss was minimal.
--- NOTE | 2017-04-05 15:30 | IPNPDOC ---
Date Seen The patient was seen on 04/05/17. Progress Note Post procedure note: EGD findings: - Normal esophagus. - No gross lesions in the stomach. - Normal duodenal bulb and second portion of the duodenum. No ulcers noted. - No specimens collected. Colonoscopy findings: - The examined portion of the ileum was normal. - One 3 mm polyp in the ascending colon, removed with a cold biopsy forceps. Resected and retrieved. - One recently bleeding colonic angioectasia. Injected. Clips were placed. - Diverticulosis in the sigmoid colon. - Non-bleeding external and internal hemorrhoids. Impression: -- Gi bleeding from colonic AVM -- s/p treatment with Epinephrine injection and clips placement ( APC was not used due to multiple patient factors). Recommendations: - High fiber diet. - Continue present medications.-- continue PPI for course of 6 weeks and can be stopped if no symptoms. - Resume anticoagulation tomorrow if no further bleeding. - Await pathology results. - Repeat colonoscopy in 5 years for surveillance based on pathology results. - Return to GI clinic at appointment to be scheduled. Please call Gi clinic to schedule an appointment in 1- 2 weeks. If patient wants to follow up with her own chicken buyer patient needs to get the hospital reports including pathoology results from medical records / Gi clinic and take them to her chicken buyer. - Return to primary care physician. VS, I&O, 24H, Deo Vital Signs/I&O Vital Signs Date Time Temp Pulse Resp B/P (MAP) Pulse Ox O2 Delivery O2 Flow Rate FiO2 04/05/17 12:00 97.5 89 20 143/61 (88) 91 Room Air 04/04/17 05:14 2.0 I&O- Last 24 Hours up to 6 AM 04/05/17 06:00 Intake Total 2000 ml Output Total 3700 ml Balance -1700 ml Laboratory Data 24H LABS Laboratory Tests 2 04/04/17 17:06: Bedside Glucose (Misc Panel) 332H 04/04/17 20:00: Total Creatine Kinase 91, Creatine Kinase MB 3.5, Creatine Kinase MB Relative Index 3.84, Troponin I 0.07# 04/05/17 00:06: Bedside Glucose (Misc Panel) 253H 04/05/17 05:56: Total Creatine Kinase 154, Creatine Kinase MB 4.8H, Creatine Kinase MB Relative Index 3.11, Troponin I 0.13#H, Anion Gap 9, Glomerular Filtration Rate > 60.0, Blood Urea Nitrogen 9#, Creatinine 0.92, Sodium Level 135L, Potassium Level 3.7 , Chloride Level 99, Carbon Dioxide Level 27, Calcium Level 8.3L, Magnesium Level 1.6L 04/05/17 05:57: Bedside Glucose (Misc Panel) 245H 04/05/17 09:58: Total Creatine Kinase 161, Creatine Kinase MB 4.3H, Creatine Kinase MB Relative Index 2.67, Troponin I 0.10# CBC/BMP Laboratory Tests 04/04/17 17:57 04/05/17 00:16 04/05/17 05:56 Red Blood Count 3.22 L, Mean Corpuscular Volume 90.0, Mean Corpuscular Hemoglobin 30.0, Mean Corpuscular Hemoglobin Concent 33.3, Red Cell Distribution Width 16.1 H, Calcium Level 8.3 L, Total Creatine Kinase 154 04/05/17 12:58 LARA LYNN MD Apr 05, 2017 15:30
[2017-04-05] MEDS ORDERED: GLUCAGON FOR INJ 1 MG VIAL (J1610) SC PRN (15:45)
[2017-04-05] MEDS ORDERED: GLUCOSE 4 GM CHEW TABLET PO PRN (15:45)
[2017-04-05] MEDS ORDERED: DEXTROSE 50% 50 ML SYRINGE IV PRN (15:45)
[2017-04-05] MEDS: ATORVASTATIN 20 MG TAB PO SCH (21:00)
--- NOTE | 2017-04-05 21:19 | ECGEPIP ---
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
[2017-04-06 00:05] VITALS: BP 146/64
[2017-04-06] MEDS: ACETAMINOPHEN TAB 650MG DOSE (2X325MG) PO PRN ×2 (00:48→23:08)
[2017-04-06 05:52] LABS: MEAN CORPUSCULAR HEMOGLOBIN 30.1 pg (27.0-33.0); MEAN CORPUSCULAR HGB CONC 32.2 g/dl (32.0-36.5); MEAN CORPUSCULAR VOLUME 93.5 fl (80.0-96.0); RED CELL DISTRIBUTION WIDTH 16.2 % (11.5-14.5); WHITE BLOOD COUNT 8.1 K/mm3 (4.0-10.0)
[2017-04-06 06:14] LABS: CALCIUM LEVEL 8.1 MG/DL (8.8-10.2); CREATININE FOR GFR 1.2 MG/DL (0.55-1.02); GLOMERULAR FILTRATION RATE 47.8 (>45); MAGNESIUM LEVEL 1.7 MG/DL (1.8-2.4); POTASSIUM SERUM 4.3 MEQ/L (3.5-5.1)
[2017-04-06] MEDS ORDERED: HumaLOG INSULIN (NovoLOG) PER UNIT SC ONE (06:30)
[2017-04-06] MEDS ORDERED: MAG SULF 1GM/100ML (MAG RUN) 1 GM in APPROPRIATE DILUENT 1 EA IV ONE (07:15)
[2017-04-06 07:45] VITALS: BP 142/65
[2017-04-06] MEDS: SUCRALFATE 1 GM TAB PO SCH ×4 (08:27→20:40)
[2017-04-06] MEDS: HumaLOG INSULIN (NovoLOG) PER UNIT SC SCH ×3 (08:34→18:12)
[2017-04-06] MEDS: PANTOPRAZOLE 40MG TAB (PROTONIX) PO SCH (09:43)
[2017-04-06] MEDS: DULoxetine 30 MG CAP (CYMBALTA) PO SCH (09:43)
[2017-04-06] MEDS: SLF 3 ML SYR IV SCH ×2 (09:44→22:00)
[2017-04-06] MEDS ORDERED: SLF 3 ML SYR IV PRN (09:45)
[2017-04-06 12:00] VITALS: BP 156/69
[2017-04-06] MEDS: SITagliptin 50 MG TAB (JANUVIA) PO SCH (12:04)
[2017-04-06 16:00] VITALS: BP 153/68
--- NOTE | 2017-04-06 16:07 | IPNPDOC ---
Date Seen The patient was seen on 04/06/17. Progress Note SUBJECTIVE: Patient is a 66-year-old Female following up today on her GI bleed that she presented Tuesday 04/03. Pt has a PMH of dyslipidemia, CHF, DM on insulin, iron deficiency anemia, Afib, CKD, and endocarditis with no evidence of active infection. Pt previously had a GI bleed in January 2016 when duodenal ulcers were found on EGD and colonoscopy. Since then, she has had intermittent spotting of blood until she presented on Sunday with maroon colored stools. EGD and colonoscopy reviewed yesterday revealed GI bleed from colonic AVM. Pt states she feels well and slept well last night. Pt complains of being tired, aching in feet and legs, and dry throat. Pt has not had a BM this morning, but states yesterday she did not have hematochezia. Pt denies fever, chills, night sweats, weakness, sinus pain, sore throat, trouble swallowing, palpitations, chest pain/pressure, wheezing, SOB, abdominal pain, abdominal distension, N/V/D/C, hematochezia, hematuria, pain with urination or bowel movement, edema in lower legs, numbness, tingling. OBJECTIVE PHYSICAL EXAMINATION: VITAL SIGNS: Please see below. GENERAL: Pt 66yo F sitting on bed eating breakfast. AXOx3. NAD. Cooperative and answering questions. HEENT: AT/NC. PERRL. No pain on palpation on sinuses. Posterior pharynx pink and moist without exudate. No lymphadenopathy. CARDIOVASCULAR: Chest w/o palpable lifts, heaves, thrills. RRR w/o MRG. RESPIRATORY: Nontender to palpation. Chest expansion equal bilaterally. CTAB w/ o WRR. ABDOMINAL: BS active w/o bruits. Nontender to palpation, soft and symmetrical without masses or organomegaly. EXTREMITIES: No edema of lower extremities. Pulses 2+ and equal bilaterally ( carotic, radial, PT, DP) LABORATORY DATA: Please see below. MICROBIOLOGY: Please see below. IMAGING: EGD: Normal esophagus, no lesion sin stomach, normal duodenal bulb and 2nd portion of duodenum, no ulcers, no specimen collected Colonoscopy: examined portion of ileum normal, one 3mm poly ascending colon removed, one recently bleeding colonic angioectasia injected with Epi and clips placed, diverticulosis of sigmoid colon, non bleeding external/internal hemorrhoids. DVT prophylaxis ordered?: SCDs/TEDs until able to restart anticoagulation. ASSESSMENT AND PLAN: This is a 66-year-old Female with GI bleed that was found to be caused by a colonic AVM that was found on colonoscopy. Pt PMH includes dyslipidemia, CHF, DM, Iron deficiency anemia, Afib, CKD. Pt is not currently bleeding. PROBLEMS: 1. GI bleed s/p EGD: Continue Protonix, Sucralfate, Zofran. Tylenol PRN pain. 2. Anemia: Currently stable. Repeat H/H 8.6/26.1. 3. Hypomagnesemia: Mildly decreased. Administering one magnesium run for replenishment. 4. DM: Continue Insulin Human Lispro. Restarted home dose of long-acting insulin (30 units Levemir) and Januvia. 5. Dyslipidemia: Continue Statin. 6. Afib: No more overt bleeding. Will hold off until tomorrow to resume Pradaxa. 7. Depression: Continue with Cymbalta. DISPOSITION: Monitor patients H&H and observe for any bleeding. Monitor glucose levels for regulation of insulin. Follow GI recommendations. VS, I&O, 24H, Fishbone Vital Signs/I&O Vital Signs Date Time Temp Pulse Resp B/P (MAP) Pulse Ox O2 Delivery O2 Flow Rate FiO2 04/06/17 07:45 98.1 70 20 142/65 (90) 92 Room Air 04/04/17 05:14 2.0 I&O- Last 24 Hours up to 6 AM 04/06/17 06:00 Intake Total 3490 ml Output Total 2150 ml Balance 1340 ml Laboratory Data 24H LABS Laboratory Tests 2 04/05/17 09:58: Total Creatine Kinase 161, Creatine Kinase MB 4.3H, Creatine Kinase MB Relative Index 2.67, Troponin I 0.10# 04/05/17 18:14: Bedside Glucose (Misc Panel) 326H 04/06/17 05:16: Anion Gap 11, Glomerular Filtration Rate 47.8, Blood Urea Nitrogen 13, Creatinine 1.20H, Sodium Level 135L, Potassium Level 4.3, Chloride Level 99, Carbon Dioxide Level 25, Calcium Level 8.1L, Magnesium Level 1.7L 04/06/17 08:29: Bedside Glucose (Misc Panel) 442H CBC/BMP Laboratory Tests 04/05/17 12:58 04/06/17 05:16 Red Blood Count 2.84 L, Mean Corpuscular Volume 93.5, Mean Corpuscular Hemoglobin 30.1, Mean Corpuscular Hemoglobin Concent 32.2, Red Cell Distribution Width 16.2 H, Calcium Level 8.1 L GEORGETTE GIANG-I Apr 06, 2017 10:11
[2017-04-06 20:00] VITALS: BP 152/56
[2017-04-06] MEDS: ATORVASTATIN 20 MG TAB PO SCH (20:40)
[2017-04-06] MEDS: LEVEMIR (INSULIN DETEMIR) 1 UNITS/0.01ML SC SCH (20:42)
[2017-04-06 23:59] VITALS: BP 130/67
[2017-04-07] MEDS ORDERED: CALCIUM CARBONATE 500 MG CHEW U/D PO ONE (00:15)
[2017-04-07 03:56] VITALS: BP 138/60
[2017-04-07 05:54] LABS: MEAN CORPUSCULAR HEMOGLOBIN 29.6 pg (27.0-33.0); MEAN CORPUSCULAR HGB CONC 32.2 g/dl (32.0-36.5); MEAN CORPUSCULAR VOLUME 92.1 fl (80.0-96.0); RED CELL DISTRIBUTION WIDTH 16.5 % (11.5-14.5); WHITE BLOOD COUNT 9.9 K/mm3 (4.0-10.0)
[2017-04-07] MEDS: SLF 3 ML SYR IV SCH ×3 (06:00→22:00)
[2017-04-07 06:08] LABS: BLOOD UREA NITROGEN 10 MG/DL (7-18); CALCIUM LEVEL 8.2 MG/DL (8.8-10.2); CARBON DIOXIDE LEVEL 31 MEQ/L (21-32); CHLORIDE LEVEL 106 MEQ/L (98-107); CREATININE FOR GFR 0.79 MG/DL (0.55-1.02); GLUCOSE, FASTING 136 MG/DL (80-110); POTASSIUM SERUM 3.9 MEQ/L (3.5-5.1)
[2017-04-07 06:19] LABS: ANION GAP 4 MEQ/L (8-16); SODIUM LEVEL 141 MEQ/L (136-145)
[2017-04-07] MEDS: HumaLOG INSULIN (NovoLOG) PER UNIT SC SCH ×3 (07:36→17:28)
[2017-04-07] MEDS: SUCRALFATE 1 GM TAB PO SCH ×4 (07:36→20:51)
[2017-04-07 08:00] VITALS: BP 133/58
[2017-04-07] MEDS: DULoxetine 30 MG CAP (CYMBALTA) PO SCH (08:53)
[2017-04-07] MEDS: PANTOPRAZOLE 40MG TAB (PROTONIX) PO SCH (08:53)
[2017-04-07] MEDS: SITagliptin 50 MG TAB (JANUVIA) PO SCH (08:54)
[2017-04-07] MEDS: ONDANSETRON 4 MG ORAL DISINTEGRATING TAB (S0181) SL PRN (09:29)
[2017-04-07] MEDS ORDERED: BISACODYL 5 MG TAB PO PRN (11:30)
--- NOTE | 2017-04-07 11:31 | IPNPDOC ---
Date Seen The patient was seen on 04/07/17. Progress Note SUBJECTIVE: Patient is a 66-year-old female with GI bleed. Patient has no acute complaints. She has not had a bowel movement today. She denies hematemesis, hemoptysis, melena, hematochezia. Denies acute vision changes, shortness of breath. Admits to weakness. OBJECTIVE PHYSICAL EXAMINATION: VITAL SIGNS: Please see below. GENERAL: Petite female, appears older than stated age, no acute distress HEENT: Atraumatic, normocephalic, PERRL, EOMI, oral mucosa appears pink and moist, nasal septum appears midline, nares are patent CARDIOVASCULAR: Regular rate and rhythm, normal S1 and S2, no murmur, rub, click RESPIRATORY: Clear to auscultation bilaterally, adequate inspiratory and expiratory airway excursion, no wheeze, rhonchi, crackles ABDOMINAL: Round, soft, non-tender, non-distended, bowel sounds appreciated EXTREMITIES: Multiple ecchymoses noted on bilateral upper extremities from multiple peripheral access attempts NEUROLOGICAL: CN II-XII grossly intact PSYCHOLOGICAL: Alert and conversant, pleasant LABORATORY DATA: Please see below. MICROBIOLOGY: Please see below. DVT prophylaxis ordered?: Knee high compression ASSESSMENT AND PLAN: This is a 66-year-old female with GI bleed. PROBLEMS: 1. GI bleed s/p EGD: Continue Protonix, Sucralfate, Zofran. Tylenol PRN pain. No active bleeding noted by patient. No BM at this time. 2. Anemia: Currently stable. Repeat H/H at noon. 3. Hypomagnesemia: Resolved. 4. DM: Continue Insulin Human Lispro, Levemir, and Januvia. 5. Dyslipidemia: Continue Statin. 6. Afib: No more overt bleeding. Remains anemic. Will hold off on Pradaxa for now. 7. Depression: Continue with Cymbalta. DISPOSITION: Repeat H/H at noon. Monitor for BM. VS, I&O, 24H, Fishbone Vital Signs/I&O Vital Signs Date Time Temp Pulse Resp B/P (MAP) Pulse Ox O2 Delivery O2 Flow Rate FiO2 04/07/17 08:00 98.2 70 18 133/58 (83) 100 Room Air 04/04/17 05:14 2.0 I&O- Last 24 Hours up to 6 AM 04/07/17 06:00 Intake Total 1900 ml Output Total 1950 ml Balance -50 ml Laboratory Data 24H LABS Laboratory Tests 2 04/06/17 11:59: Bedside Glucose (Misc Panel) 295H 04/06/17 16:53: Bedside Glucose (Misc Panel) 154H 04/06/17 20:32: Bedside Glucose (Misc Panel) 236H 04/06/17 23:26: Magnesium Level 2.1 04/07/17 05:29: Anion Gap 4L, Blood Urea Nitrogen 10, Creatinine 0.79, Sodium Level 141, Potassium Level 3.9, Chloride Level 106, Carbon Dioxide Level 31, Calcium Level 8.2L, Magnesium Level 2.0 CBC/BMP Laboratory Tests 04/06/17 12:15 04/06/17 18:32 04/06/17 23:26 04/07/17 05:29 Red Blood Count 2.63 L, Mean Corpuscular Volume 92.1, Mean Corpuscular Hemoglobin 29.6, Mean Corpuscular Hemoglobin Concent 32.2, Red Cell Distribution Width 16.5 H, Calcium Level 8.2 L GEORGETTE GIANG-Mary Apr 07, 2017 11:31
[2017-04-07 12:00] VITALS: BP 139/67
[2017-04-07 16:00] VITALS: BP 172/69
[2017-04-07] MEDS: CALCIUM CARBONATE 500 MG CHEW U/D PO PRN ×2 (16:41→23:51)
[2017-04-07 20:00] VITALS: BP 153/67
[2017-04-07] MEDS: ATORVASTATIN 20 MG TAB PO SCH (20:52)
[2017-04-07] MEDS: traZODone 50 MG TAB PO PRN (20:53)
[2017-04-07] MEDS: LEVEMIR (INSULIN DETEMIR) 1 UNITS/0.01ML SC SCH (20:53)
[2017-04-07] MEDS: ACETAMINOPHEN TAB 650MG DOSE (2X325MG) PO PRN (22:00)
[2017-04-07 23:59] VITALS: BP 135/64
[2017-04-08] VITALS (7 sets, daily range): BP systolic 117–159; BP diastolic 56–83
[2017-04-08 05:07] LABS: MEAN CORPUSCULAR HEMOGLOBIN 30.6 pg (27.0-33.0); MEAN CORPUSCULAR HGB CONC 33.3 g/dl (32.0-36.5); RED CELL DISTRIBUTION WIDTH 15.7 % (11.5-14.5); WHITE BLOOD COUNT 7.5 K/mm3 (4.0-10.0)
[2017-04-08 05:26] LABS: ANION GAP 4 MEQ/L (8-16); BLOOD UREA NITROGEN 17 MG/DL (7-18); CALCIUM LEVEL 8.2 MG/DL (8.8-10.2); CARBON DIOXIDE LEVEL 31 MEQ/L (21-32); CHLORIDE LEVEL 104 MEQ/L (98-107); CREATININE FOR GFR 0.98 MG/DL (0.55-1.02); GLOMERULAR FILTRATION RATE > 60.0 (>45); GLUCOSE, FASTING 294 MG/DL (80-110); SODIUM LEVEL 139 MEQ/L (136-145)
[2017-04-08] MEDS: SLF 3 ML SYR IV SCH ×3 (06:30→21:07)
[2017-04-08] MEDS: SUCRALFATE 1 GM TAB PO SCH ×4 (07:25→21:07)
[2017-04-08] MEDS: HumaLOG INSULIN (NovoLOG) PER UNIT SC SCH ×3 (07:26→17:08)
--- NOTE | 2017-04-08 08:34 | IPNPDOC ---
Text Note Date of Service The patient was seen on 04/08/17. NOTE SUBJECTIVE: Patient seen and examined at bedside. No new medical complaints. Patient had a few BMs yesterday, no blood noted. OBJECTIVE: GENERAL: NAD, lying comfortably in bed, petite female, appears older than stated age HEENT: NC/AT, PERRL, EOMI, MMM CARDIOVASCULAR: +S1S2, RRR RESPIRATORY: CTA B/L ABDOMINAL: soft, NT, +BS EXTREMITIES: Multiple ecchymoses noted on bilateral upper extremities PSYCHOLOGICAL: ASOx3, conversant, pleasant ASSESSMENT AND PLAN: This is a 66-year-old female with GI bleed in the setting of Pradaxa for Afib. PROBLEMS: 1. GI bleed s/p EGD/colonoscopy - 3 mm sessile polyp - ascending colon s/p biopsy/resection - one large angioectasia with stigmata of recent bleeding - ascending colon s/p clipping - few diverticula - sigmoid colon, int/ext hemorrhoids - medium size, non- bleeding - H/H relatively stable - Continue Protonix, Sucralfate - No active bleeding noted by patient - Follow as per GI, assistance appreciated 2. Acute blood loss anemia - possible secondary to NOAC - relative stable - repeat H/H 12 hours - history of iron deficiency anemia - oral iron supplementation resumed 3. Hypomagnesemia - resolved. 4. DM - Continue Insulin Human Lispro, Levemir, and Januvia. 5. Dyslipidemia - Continue Statin. 6. Afib - Remains anemic but stable - Will hold off on Pradaxa for now consider resuming in 24 hours - resume BB with parameters 7. Depression - continue with Cymbalta. 8. CHF - with severe systolic dysfunction s/p AICD - compensated - BB resumed, aldactone to resume in 24 hours, ACEI resumed DISPOSITION: Continue to monitor H/H, resume NOAC in 24 hours if stable H/H VS,Fishbone, I+O VS, Fishbone, I+O Laboratory Tests 04/07/17 12:36 04/07/17 17:59 04/07/17 23:49 04/08/17 04:53 Red Blood Count 2.72 L, Mean Corpuscular Volume 92.0, Mean Corpuscular Hemoglobin 30.6, Mean Corpuscular Hemoglobin Concent 33.3, Red Cell Distribution Width 15.7 H, Calcium Level 8.2 L Vital Signs Date Time Temp Pulse Resp B/P (MAP) Pulse Ox O2 Delivery O2 Flow Rate FiO2 04/08/17 07:20 Room Air 04/08/17 04:00 97.8 69 18 131/83 (99) 100 2.0 I&O- Last 24 Hours up to 6 AM 04/08/17 06:00 Intake Total 1320 ml Output Total 1300 ml Balance 20 ml JAMES ZUNIGA MD Apr 08, 2017 08:34
[2017-04-08] MEDS: LISINOPRIL *2.5 MG* TAB PO SCH (08:44)
[2017-04-08] MEDS: SITagliptin 50 MG TAB (JANUVIA) PO SCH (08:44)
[2017-04-08] MEDS: PANTOPRAZOLE 40MG TAB (PROTONIX) PO SCH (08:45)
[2017-04-08] MEDS: DULoxetine 30 MG CAP (CYMBALTA) PO SCH (08:45)
[2017-04-08] MEDS: FERROUS SULFATE 325MG TAB PO SCH (08:45)
[2017-04-08] MEDS: METOPROLOL SUCC *XL* 25MG TAB (TopROL *XL*) PO SCH (08:45)
[2017-04-08] MEDS: ACETAMINOPHEN TAB 650MG DOSE (2X325MG) PO PRN ×2 (11:05→22:24)
[2017-04-08] MEDS: SENOKOT S TAB PO PRN (17:08)
[2017-04-08] MEDS: ATORVASTATIN 20 MG TAB PO SCH (21:07)
[2017-04-08] MEDS: LEVEMIR (INSULIN DETEMIR) 1 UNITS/0.01ML SC SCH (21:07)
[2017-04-08] MEDS: traZODone 50 MG TAB PO PRN (21:07)
[2017-04-09 04:34] VITALS: BP 143/63
[2017-04-09] MEDS: ONDANSETRON 4 MG ORAL DISINTEGRATING TAB (S0181) SL PRN ×2 (04:55→12:24)
[2017-04-09] MEDS: CALCIUM CARBONATE 500 MG CHEW U/D PO PRN (05:35)
[2017-04-09 05:46] LABS: MEAN CORPUSCULAR HEMOGLOBIN 29.7 pg (27.0-33.0); MEAN CORPUSCULAR HGB CONC 31.2 g/dl (32.0-36.5); RED CELL DISTRIBUTION WIDTH 15.6 % (11.5-14.5); WHITE BLOOD COUNT 8.6 K/mm3 (4.0-10.0)
[2017-04-09] MEDS: SLF 3 ML SYR IV SCH (05:59)
[2017-04-09 06:03] LABS: CALCIUM LEVEL 8.3 MG/DL (8.8-10.2); CREATININE FOR GFR 1.11 MG/DL (0.55-1.02); GLOMERULAR FILTRATION RATE 52.4 (>45); MAGNESIUM LEVEL 1.9 MG/DL (1.8-2.4); POTASSIUM SERUM 3.9 MEQ/L (3.5-5.1)
[2017-04-09 08:00] VITALS: BP 135/65
[2017-04-09] MEDS: DULoxetine 30 MG CAP (CYMBALTA) PO SCH (08:57)
[2017-04-09] MEDS: PANTOPRAZOLE 40MG TAB (PROTONIX) PO SCH (08:57)
[2017-04-09] MEDS: METOPROLOL SUCC *XL* 25MG TAB (TopROL *XL*) PO SCH (08:57)
[2017-04-09] MEDS: SUCRALFATE 1 GM TAB PO SCH ×4 (08:57→20:25)
[2017-04-09] MEDS: HumaLOG INSULIN (NovoLOG) PER UNIT SC SCH ×3 (08:57→17:49)
[2017-04-09] MEDS: SITagliptin 50 MG TAB (JANUVIA) PO SCH (08:58)
[2017-04-09] MEDS: LISINOPRIL *2.5 MG* TAB PO SCH (08:58)
[2017-04-09] MEDS: FERROUS SULFATE 325MG TAB PO SCH (08:58)
--- NOTE | 2017-04-09 09:47 | IPNPDOC ---
Date Seen The patient was seen on 04/09/17. Progress Note SUBJECTIVE: Patient is a 66-year-old female with GI bleed. Patient is sitting up in bed during my evaluation this morning. She reports no overnight complaints. Denies melena, hematochezia, hemoptysis, hematemesis. She further denies weakness, lightheadedness, dizziness. Resuming pradaxa today. Monitor overnight for any signs of bleeding. Possible discharge in the next 24 hours if H/H continues to remains stable. OBJECTIVE PHYSICAL EXAMINATION: VITAL SIGNS: Please see below. GENERAL: Pleasant female, appears stated age, well nourished, well developed, no acute distress HEENT: Atraumatic, normocephalic, PERRL, EOMI, oral mucosa appears pink and moist, nasal septum appears midline, nares are patent CARDIOVASCULAR: Regular rate and rhythm, normal S1 and S2, no murmur, rub, click RESPIRATORY: Clear to auscultation bilaterally, adequate inspiratory and expiratory airway excursion, no wheeze, rhonchi, crackles ABDOMINAL: Soft, flat, non-tender, non-distended, bowel sounds appreciated EXTREMITIES: Peripheral pulses appreciated, multiple upper extremity ecchymoses secondary to attempted peripheral access, without edema NEUROLOGICAL: CN II-XII grossly intact PSYCHOLOGICAL: Alert and conversant, pleasant LABORATORY DATA: Please see below. MICROBIOLOGY: Please see below. DVT prophylaxis ordered?: Pradaxa resumed this AM ASSESSMENT AND PLAN: This is a 66-year-old female with GI bleed. PROBLEMS: 1. GI bleed s/p EGD/colonoscopy: H/H 9.0/28.9. No overt signs of bleeding. Continue with carafate and protonix. Colonoscopy showed "One 3 mm polyp in the ascending colon, removed with a cold biopsy forceps. Resected and retrieved. One recently bleeding colonic angioectasia. Injected. Clips were placed. Diverticulosis in the sigmoid colon. Non-bleeding external and internal hemorrhoids." 2. Acute blood loss anemia: No overt signs of bleeding. Restarted Pradaxa this AM. H/H is currently stable at 9.0/28.9. Continue with ferrous sulfate supplementation. 3. Diabetes mellitus: Continue with SSI, Levemir, and Januvia. Could consider adjusting medications as blood glucose levels have remained elevated. 4. Dyslipidemia: Continue Statin. 5. Afib: Remains anemic, but stable. PVC's noted on telemetry. Metroprolol resumed. 6. Depression: Continue with Cymbalta. 7. CHF: Severe, systolic dysfunction s/p AICD. Metoprolol and lisinopril resumed. Resumed spironolactone this AM with hold parameters. DISPOSITION: Resumed Pradaxa this AM. Monitor H/H overnight. No acute signs of bleeding, possible discharge in 24 hours. VS, I&O, 24H, [facility] Vital Signs/I&O Vital Signs Date Time Temp Pulse Resp B/P (MAP) Pulse Ox O2 Delivery O2 Flow Rate FiO2 04/09/17 08:58 135/65 04/09/17 08:57 70 04/09/17 08:00 98.8 18 96 Room Air 04/08/17 08:00 2.0 I&O- Last 24 Hours up to 6 AM 04/09/17 06:00 Intake Total 1200 ml Output Total 2150 ml Balance -950 ml Laboratory Data 24H LABS Laboratory Tests 2 04/08/17 11:34: Bedside Glucose (Misc Panel) 255H 04/08/17 17:04: Bedside Glucose (Misc Panel) 258H 04/08/17 21:05: Bedside Glucose (Misc Panel) 244H 04/09/17 05:13: Anion Gap 6L, Glomerular Filtration Rate 52.4, Blood Urea Nitrogen 23H, Creatinine 1.11H, Sodium Level 139, Potassium Level 3.9, Chloride Level 102, Carbon Dioxide Level 31, Calcium Level 8.3L, Magnesium Level 1.9 CBC/BMP Laboratory Tests 04/09/17 05:13 Red Blood Count 3.04 L, Mean Corpuscular Volume 95.0, Mean Corpuscular Hemoglobin 29.7, Mean Corpuscular Hemoglobin Concent 31.2 L, Red Cell Distribution Width 15.6 H, Calcium Level 8.3 L GEORGETTE GIANG Apr 09, 2017 09:47
[2017-04-09] MEDS: DABIGATRAN ETEXILATE 75 MG CAP (PRADAXA) PO SCH ×2 (09:56→20:24)
[2017-04-09] MEDS: SPIRONOLACTONE 50 MG TAB PO SCH (09:56)
[2017-04-09 11:52] VITALS: BP 125/56
[2017-04-09] MEDS: SENOKOT S TAB PO PRN (12:24)
[2017-04-09 16:00] VITALS: BP 141/65
[2017-04-09 19:40] VITALS: BP 155/65
[2017-04-09] MEDS: LEVEMIR (INSULIN DETEMIR) 1 UNITS/0.01ML SC SCH (20:24)
[2017-04-09] MEDS: traZODone 50 MG TAB PO PRN (20:25)
[2017-04-09] MEDS: ACETAMINOPHEN TAB 650MG DOSE (2X325MG) PO PRN (20:25)
[2017-04-09] MEDS: ATORVASTATIN 20 MG TAB PO SCH (20:25)
[2017-04-10] VITALS: BP 122/58
[2017-04-10 04:00] VITALS: BP 158/75
[2017-04-10 05:33] LABS: MEAN CORPUSCULAR HEMOGLOBIN 29.3 pg (27.0-33.0); MEAN CORPUSCULAR VOLUME 94.5 fl (80.0-96.0); RED CELL DISTRIBUTION WIDTH 15.7 % (11.5-14.5); WHITE BLOOD COUNT 8.1 K/mm3 (4.0-10.0)
[2017-04-10 05:47] LABS: ANION GAP 8 MEQ/L (8-16); BLOOD UREA NITROGEN 20 MG/DL (7-18); CALCIUM LEVEL 8.3 MG/DL (8.8-10.2); CARBON DIOXIDE LEVEL 27 MEQ/L (21-32); CHLORIDE LEVEL 108 MEQ/L (98-107); CREATININE FOR GFR 0.87 MG/DL (0.55-1.02); GLOMERULAR FILTRATION RATE > 60.0 (>45); GLUCOSE, FASTING 176 MG/DL (80-110); POTASSIUM SERUM 4.1 MEQ/L (3.5-5.1); SODIUM LEVEL 143 MEQ/L (136-145)
[2017-04-10 07:30] VITALS: BP 136/71
[2017-04-10] MEDS: HumaLOG INSULIN (NovoLOG) PER UNIT SC SCH ×2 (08:26→12:00)
[2017-04-10] MEDS: SITagliptin 50 MG TAB (JANUVIA) PO SCH (08:29)
[2017-04-10] MEDS: DABIGATRAN ETEXILATE 75 MG CAP (PRADAXA) PO SCH (08:29)
[2017-04-10] MEDS: SUCRALFATE 1 GM TAB PO SCH ×2 (08:29→12:00)
[2017-04-10] MEDS: LISINOPRIL *2.5 MG* TAB PO SCH (08:30)
[2017-04-10] MEDS: PANTOPRAZOLE 40MG TAB (PROTONIX) PO SCH (08:30)
[2017-04-10] MEDS: SPIRONOLACTONE 50 MG TAB PO SCH (08:30)
[2017-04-10] MEDS: FERROUS SULFATE 325MG TAB PO SCH (08:30)
[2017-04-10 08:31] VITALS: BP 136/71
[2017-04-10] MEDS: METOPROLOL SUCC *XL* 25MG TAB (TopROL *XL*) PO SCH (08:31)
[2017-04-10] MEDS: DULoxetine 30 MG CAP (CYMBALTA) PO SCH (08:31)
[2017-04-10] MEDS ORDERED: SUCR1TA PO (11:05)
[2017-04-10] MEDS: SENOKOT S TAB PO PRN (12:00)
--- NOTE | 2017-04-11 06:15 | DSES ---
DATE OF ADMISSION: 04/03/2017 DATE OF DISCHARGE: 04/10/2017 PRIMARY CARE PROVIDER : [place] [facility]. BROOM BUILDER: Dr. Alvares. FINAL DIAGNOSES: 1. Gastrointestinal (GI) bleed with colonic telangiectasia. 2. Acute blood loss anemia. 3. Diabetes mellitus type two. 4. Dyslipidemia. 5. Atrial fibrillation. 6. Depression. 7. Congestive heart failure (CHF). HISTORY OF PRESENT ILLNESS: This is a 66-year-old female patient with underlying medical history of dyslipidemia, congestive heart failure with ejection fraction (EF) of 35-40% with pacemaker, insulin-dependent type 2 diabetes mellitus, iron-deficiency anemia, atrial fibrillation on Pradaxa, GI bleed, chronic kidney disease (CKD), history of endocarditis, who presented to the emergency room with two episodes of maroon-colored stool over 24 hours. The patient stated that her first episode was the night before, at which the patient states that she had profuse amount of maroon-colored stool. In addition, she states that she had additional episode the morning of admission, noted that she had similar occurrence in the past, most notably 01/2016, where she had required esophagogastroduodenoscopy (EGD) and colonoscopy revealing a duodenal ulcer at [facility] ([facility]. She reported that her anticoagulation was at that time temporarily discontinued and was restarted later. The patient also reported she had intermittent spots of blood in her bowel movement but not significant as over the last 24 hours. Denies any fever, chills, chest pain, pressure or discomfort, shortness of breath, nausea or vomiting. Does feel week. In the emergency room, the patient was found to have a hemoglobin of 6.8. HOSPITAL COURSE: The patient was transfused two units of packed red blood cells (PRBCs). Gastroenterology (GI) has been consulted. The patient's hemoglobin and hematocrit (H and H) were monitored. Pradaxa has been on hold. The patient's blood pressure medication has also been on hold initially. EGD and colonoscopy were done. Polyp was removed. Colonic telangiectasia was injected and clipped. Protonix was given. Carafate was also given. The patient's hemoglobin and hematocrit were followed. Iron supplementation was provided. The patient's diabetic medication was continued. The patient's hemoglobin and hematocrit were determined to be stable. Subsequently, after discussing with GI, the patient's Pradaxa was restarted, as well as the patient's blood pressure medication. The patient currently is asymptomatic with no further episodes of bleeding, with stable hemoglobin and hematocrit, tolerating oral, and ready for discharge for further care as outpatient. PHYSICAL EXAMINATION: VITAL SIGNS: Temperature 98.1, pulse 75, respirations 20, blood pressure 136/71, pulse oximetry 93% on room air. GENERAL: Patient alert and oriented times three, in no acute distress. HEENT: Normocephalic, atraumatic. PULMONARY: Bilaterally clear to auscultation. CARDIAC: Regular rate and rhythm. Normal S1, S2. ABDOMEN: Soft, nontender. Positive bowel sounds. EXTREMITIES: No clubbing, cyanosis or edema. LABORATORY DATA: WBC 8.1, hemoglobin and hematocrit 9.1 over 29.5, platelets 248. Chemistry: Sodium 142, potassium 4.1, chloride 108, bicarbonate 27, BUN 20, creatinine 0.87. DISCHARGE MEDICATIONS: - Carafate 1 gram premeal for 10 more days - Lipitor 40 mg every evening - budesonide 1 mg by mouth daily - calcium carbonate 600 mg by mouth three times a day - Pradaxa 150 mg by mouth twice a day - Cymbalta 60 mg by mouth daily - ferrous sulfate 325 mg by mouth daily - insulin premeal NovoLog - Lantus 30 units subcutaneous at bedtime - lisinopril 2.5 mg by mouth daily - metoprolol 25 mg by mouth daily - omeprazole 20 mg by mouth twice a day - potassium chloride 10 mEq by mouth daily - senna 8.6 two tablets by mouth at bedtime - Januvia 100 mg by mouth daily - spironolactone 10 mg by mouth daily DISCHARGE INSTRUCTIONS: The patient is instructed to followup in primary care provider in seven days, 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 Return to the hospital if symptoms worsen.
== END 2017-04-10 12:40 | disposition home or self-care (01) | DRG 378 ==
LOC: EDBD 10:49 → M ED 10:49 → M ED INP 14:53 → M ICU 16:28 → M PCU 04-06 03:24
PROVIDERS: ADMIT Internal Medicine; ATTEND Hospitalist
PROC: 0DBK8ZX Excision of Ascending Colon, Via Natural or Artificial Opening Endoscopic, Diagnostic (ICD-10-PCS; 2017-04-05)
PROC: 0W3P8ZZ Control Bleeding in Gastrointestinal Tract, Via Natural or Artificial Opening Endoscopic (ICD-10-PCS; 2017-04-05)
PROC: 0DJ08ZZ Inspection of Upper Intestinal Tract, Via Natural or Artificial Opening Endoscopic (ICD-10-PCS; principal; 2017-04-05 14:00)
DX: K55.21 Angiodysplasia of colon with hemorrhage (principal); I50.22 Chronic systolic (congestive) heart failure; D62 Acute posthemorrhagic anemia; Q27.33 Arteriovenous malformation of digestive system vessel; E78.5 Hyperlipidemia, unspecified; E11.9 Type 2 diabetes mellitus without complications; D50.9 Iron deficiency anemia, unspecified; I48.91 Unspecified atrial fibrillation; N18.9 Chronic kidney disease, unspecified; E83.42 Hypomagnesemia; D72.829 Elevated white blood cell count, unspecified; Z95.0 Presence of cardiac pacemaker; I25.5 Ischemic cardiomyopathy; I25.10 Atherosclerotic heart disease of native coronary artery without angina pectoris; D12.6 Benign neoplasm of colon, unspecified; K57.30 Diverticulosis of large intestine without perforation or abscess without bleeding; K64.4 Residual hemorrhoidal skin tags; K64.8 Other hemorrhoids; Z79.899 Other long term (current) drug therapy; Z88.8 Allergy status to other drugs, medicaments and biological substances; Z79.4 Long term (current) use of insulin

== ENCOUNTER → 2017-08-29 | Outpatient (CLI) | payer MEDICARE, MEDICAID ==
[2017-08-29 16:50] LABS: BASO # 0.1 10^3/uL (0.0-0.2); BASO % 0.6 % (0.0-1.0); EOS # 0.1 10^3/uL (0.0-0.50); HEMOGLOBIN 13.6 g/dl (12.0-16.0); IMMATURE GRANULOCYTE # 0.1 10^3/uL (0-0); IMMATURE GRANULOCYTE % 0.5 % (0-0); LYMPH # 0.8 10^3/uL (1.5-4.5); LYMPH % 8.4 % (24.0-44.0); MEAN CORPUSCULAR HEMOGLOBIN 30.1 pg (27.0-33.0); MEAN CORPUSCULAR VOLUME 88.5 fl (80.0-96.0); MONO # 0.7 10^3/uL (0.0-0.8); MONO % 7.4 % (0.0-5.0); NEUTROPHILS % 82.1 % (36.0-66.0); PLATELET COUNT, AUTOMATED 204 10^3/uL (150-450); RED BLOOD COUNT 4.52 10^6/uL (4.00-5.40); RED CELL DISTRIBUTION WIDTH 12.6 % (11.5-14.5); WHITE BLOOD COUNT 9.8 10^3/uL (4.0-10.0)
[2017-08-29 17:47] LABS: ALBUMIN/GLOBULIN RATIO 1.05 (1.00-1.93); ALKALINE PHOSPHATASE 175 U/L (45-117); ALT/SGPT 39 U/L (12-78); ANION GAP 9 MEQ/L (8-16); AST/SGOT 35 U/L (7-37); BILIRUBIN,TOTAL 0.5 MG/DL (0.2-1.0); BLOOD UREA NITROGEN 30 MG/DL (7-18); CARBON DIOXIDE LEVEL 28 MEQ/L (21-32); CHLORIDE LEVEL 98 MEQ/L (98-107); CREATININE FOR GFR 1.14 MG/DL (0.55-1.30); GLOMERULAR FILTRATION RATE 50.8 (>45); POTASSIUM SERUM 4.6 MEQ/L (3.5-5.1); SODIUM LEVEL 135 MEQ/L (136-145); TOTAL PROTEIN 7.8 GM/DL (6.4-8.2)
[2017-08-29 17:54] LABS: GLUCOSE, FASTING 411 MG/DL (70-100)
== END ==
LOC: M LAB 16:12
DX: I47.2 Ventricular tachycardia (principal)
CPT/HCPCS: 80053

== ENCOUNTER 2018-08-08 03:58 | Emergency (ER) | payer MEDICARE, MEDICAID ==
[~2018-08-08] VITALS: Ht 149.9 cm; Wt 47.3 kg
[~2018-08-08 03:58] MED LIST changes: +ATOR40TA75 PO; +BUME2TAB3 PO; +CALC600T3 PO; +DULO30CA PO; +FERR325T3 PO; +GLUC1KIT INJ; +INSUH10VL SC; +INSULADS SC; +JANU100T PO; +KLOR10TA76 PO; +LISI2.5T5 PO; +OMEP20CA3 PO; +OMEP40CA2 PO; +PRAD150C PO; +SENN1TAB10 PO; +SPIR50TA4 PO; +SUCR1TA PO; +TOPR25TA13 PO
[2018-08-08] MEDS ORDERED: SERT50TA PO (04:25)
[2018-08-08] MEDS ORDERED: CALC1TAB26 PO (04:25)
[2018-08-08] MEDS ORDERED: MELA5TAB20 PO (04:25)
[2018-08-08 04:35] LABS: BASO # 0.1 10^3/uL (0.0-0.2); BASO % 0.5 % (0.0-1.0); EOS # 0.1 10^3/uL (0.0-0.50); EOS % 1.2 % (0.0-3.0); HEMOGLOBIN 10.7 g/dl (12.0-15.5); LYMPH # 1.1 10^3/uL (1.5-4.5); LYMPH % 9.8 % (24.0-44.0); MEAN CORPUSCULAR HEMOGLOBIN 30.6 pg (27.0-33.0); MEAN CORPUSCULAR HGB CONC 32.4 g/dl (32.0-36.5); MEAN CORPUSCULAR VOLUME 94.3 fl (80.0-96.0); MONO # 1.2 10^3/uL (0.0-0.8); MONO % 10.7 % (0.0-5.0); NEUTROPHILS # 8.5 10^3/uL (1.8-7.7); NEUTROPHILS % 77.2 % (36.0-66.0); PLATELET COUNT, AUTOMATED 194 10^3/uL (150-450)
[2018-08-08 04:45] LABS: INR 1.2; PROTHROMBIN TIME 15.3 SECONDS (12.1-14.4)
[2018-08-08 04:46] LABS: PARTIAL THROMBOPLASTIN TIME 33.1 SECONDS (25.4-37.6)
[2018-08-08 04:58] LABS: ALBUMIN 3.4 GM/DL (3.2-5.2); BILIRUBIN,DIRECT 0.2 MG/DL (0.0-0.2); BILIRUBIN,TOTAL 0.4 MG/DL (0.2-1.0); CALCIUM LEVEL 8.5 MG/DL (8.8-10.2); CREATININE FOR GFR 1.11 MG/DL (0.55-1.30); GLOMERULAR FILTRATION RATE 52.2 (>45); MAGNESIUM LEVEL 1.7 MG/DL (1.8-2.4); MB/CK RELATIVE INDEX 2.26 (< OR =4); POTASSIUM SERUM 3.9 MEQ/L (3.5-5.1); TOTAL PROTEIN 6.6 GM/DL (6.4-8.2); TROPONIN I 0.02 NG/ML (< 0.10)
[2018-08-08] MEDS ORDERED: MAG SULF 1GM/100ML (MAG RUN) 1 GM in APPROPRIATE DILUENT 1 EA IV ONE (05:00)
[2018-08-08] MEDS ORDERED: FUROSEMIDE 40 MG/4 ML VIAL (J1940) IV ONE (05:00)
[2018-08-08] MEDS: GASTROGRAFIN SOLUTION 30ML PO SCH ×2 (05:35→05:47)
[2018-08-08 07:18] LABS: MB/CK RELATIVE INDEX 2.07 (< OR =4); TROPONIN I 0.02 NG/ML (< 0.10)
[2018-08-08] MEDS ORDERED: ISOVUE-370 76% 100ML VIAL (Q9967) As Ordered ONE (07:42)
--- NOTE | 2018-08-08 08:23 | REP ---
Acute abdomen series: Three views. History: Abdomen pain. Comparison imaging is from September 18, 2016. Findings: Upright chest radiograph demonstrates a multi-lead pacemaker in the right heart via the left side. There is evidence of mitral and aortic valve replacement via median sternotomy. Moderate cardiac enlargement is again noted unchanged. There is no evidence of infiltrate or free subdiaphragmatic air. Supine and erect views of the abdomen demonstrate air and stool in a nondistended colon. There are a few loops of air-filled nondilated small bowel. No mass, organomegaly, or pathologic calcification. No evidence of free air or significant air fluid level. Impression: Unremarkable bowel gas pattern. Status post aortic and mitral valve replacements with a pacemaker and cardiomegaly. Electronically Signed by Jason Zarate MD 08/08/2018 09:31 A
--- NOTE | 2018-08-08 08:47 | REP ---
CT chest with IV contrast: History: Cough. History of CHF. CT contrast dose: 100 mL of intravenous Isovue [address] comparison study: October 24, 2016. CT findings: Preliminary digital broadcast transmitter operator radiograph demonstrates mitral and aortic valve replacement and pacemaker via the right side. Heart is enlarged. There is a small right pleural effusion layering posteriorly. No pericardial effusion is seen. No infiltrate is seen. No mass or significant pulmonary nodule is appreciated. There is no CT evidence of pulmonary embolus. No aortic aneurysm or dissection is seen. 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 There is mild mediastinal lymphadenopathy. The largest lymph node is a precarinal lymph node which measures 14 x 18 mm. There is an AP window region lymph node on the left measuring 11 x 18 mm. There are two or three other scattered normal-sized mediastinal lymph nodes. These two lymph nodes are more prominent than they were in September of 2016. There is a tiny amount of perihepatic ascitic fluid. No adrenal mass lesion is seen. The visualized upper abdominal structures are otherwise unremarkable. There is reflux of contrast opacified blood into the vena cava and hepatic veins consistent with right heart failure. Impression: Four-chamber cardiomegaly. 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 Pacemaker. Mitral and aortic valve replacements. Small amount of right pleural fluid. Minimal perihepatic ascites. Evidence of right heart failure. Mild mediastinal lymphadenopathy. Electronically Signed by Jason Zarate MD 08/08/2018 09:31 A
[2018-08-08 08:49] VITALS: O2SAT 94
--- NOTE | 2018-08-08 08:50 | REP ---
CT abdomen and pelvis with IV and oral contrast: History: Diffuse abdomen pain. History of upper and lower GI bleeds. Comparison CT study is from October 24, 2016. CT contrast dose: 100 mL of intravenous Isovue, [address] findings: Preliminary digital single wire saw operator radiograph demonstrates a normal bowel gas pattern. There is mild diffuse fatty infiltration of the liver. A minimal amount of perihepatic ascites is seen in the right upper abdomen. No other evidence of ascites is noted in the abdomen or pelvis. No focal hepatic lesion is seen. Spleen is unremarkable. No adrenal lesion is seen. The pancreas shows no evidence of mass or cyst. There is some gallbladder wall thickening, but the gallbladder is not dilated. No stone is visible by CT. The kidneys enhance symmetrically and are morphologically intact. There is a fairly large caliber collateral vein anterior to the vena cava consistent with slightly dilated right gonadal vein. Uterus and adnexa are unremarkable morphologically. Urinary bladder is unremarkable. There is left colonic diverticulosis mild in degree. No colonic or small bowel mass lesion is observed. No abdominal adenopathy is appreciated. No definite abdominal wall defect is seen. No bony destructive lesion is appreciated. Impression: Fatty infiltration of the liver. Minimal perihepatic ascites. Diffuse gallbladder wall thickening without distension. Left colonic diverticulosis. No other significant abnormality. Electronically Signed by Jason Zarate MD 08/08/2018 09:31 A
[2018-08-08 09:29] VITALS: BP 116/76
--- NOTE | 2018-08-08 15:52 | ED PDOC ---
Post-Departure Follow-Up ct chest faxed to dr sandoval for fu Gypsy Landin MD Aug 08, 2018 15:52
--- NOTE | 2018-08-09 13:50 | ECGEPIP ---
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
== END 2018-08-08 09:30 | disposition home or self-care (01) ==
LOC: M ED 03:58
DX: R10.9 Unspecified abdominal pain (principal); R94.31 Abnormal electrocardiogram [ECG] [EKG]; Z95.0 Presence of cardiac pacemaker; E11.9 Type 2 diabetes mellitus without complications; I48.91 Unspecified atrial fibrillation; I25.10 Atherosclerotic heart disease of native coronary artery without angina pectoris; I50.9 Heart failure, unspecified; I25.2 Old myocardial infarction; I10 Essential (primary) hypertension; I38 Endocarditis, valve unspecified; K76.0 Fatty (change of) liver, not elsewhere classified; R18.8 Other ascites; K57.30 Diverticulosis of large intestine without perforation or abscess without bleeding; I51.7 Cardiomegaly; Z95.2 Presence of prosthetic heart valve; Z79.4 Long term (current) use of insulin; Z79.899 Other long term (current) drug therapy; Z88.8 Allergy status to other drugs, medicaments and biological substances
CPT/HCPCS: 71260; 74021; 74177; 80048; 80076; 82550; 82553; 83540; 83605; 83690; 83735; 83880; 84484; 85025; 85610; 85730; 93005; 93041; 96374; 96375; 99284; J1940; J3475; Q9963; Q9967